=== PATIENT | male | born 1995 | race Caucasian/White ===

== ENCOUNTER 2017-07-06 18:18 | Emergency (ER) | payer MEDICAID ==
[~2017-07-06] VITALS: Ht 170.2 cm; Wt 71.5 kg
[~2017-07-06 18:18] MED LIST: CLOT30CR24 TOP
[2017-07-06 18:33] VITALS: Ht 170.2 cm; Wt 71.5 kg
[2017-07-06] MEDS ORDERED: AMOX500C2 PO (18:59)
--- NOTE | 2017-07-06 19:17 | ERA ---
ER Documentation Chief Complaint Date/Time DATE: 07/06/17 TIME: 19:13 Chief Complaint cough x 2 days, chest wall congestion, sore throat HPI Patient presents with a chief complaints of pharyngitis and body aches for the past week that has worsened over the past 2 days. Patient has not taken any medications for these symptoms. Denies any cough as stated in the nursing notes. Denies difficulty breathing, dysphagia, change in voice, drooling, oral swelling, ear pain or meningismus. Patient's vaccination status up-to-date. No recent travel. Nursing notes have been reviewed and are consistent with history given. ROS All systems reviewed and are negative except as per history of present illness. Medications Home Meds Active Scripts Amoxicillin* (Amoxicillin*) 500 Mg Cap, 500 MG PO TID for 10 Days, CAP Prov:DEBRA DELA CURZ PA-C 07/06/17 Clotrimazole* (Clotrimazole* AF) 1% - 30 Gm Cream.gm., 1 APPLIC TOP BID for 7 Days, TUB Prov:DEVAN HERRERA PA-C 11/26/15 Allergies Allergies: Coded Allergies: No Known Allergy (Unverified , 11/26/15) PMhx/Soc History of Surgery: No Anesthesia Reaction: No Hx Neurological Disorder: No Hx Respiratory Disorders: No Hx Cardiac Disorders: No Hx Psychiatric Problems: No Hx Miscellaneous Medical Probl: No Hx Alcohol Use: No Hx Substance Use: No Hx Tobacco Use: No Smoking Status: Never smoker Physical Exam Vitals Vital Signs Date Time Temp Pulse Resp B/P Pulse Ox O2 Delivery O2 Flow Rate FiO2 07/06/17 18:33 98.2 85 20 117/70 99 Physical Exam Const: Healthy-appearing, well-nourished, well-developed, no acute distress. Throat: Enlarged tonsils bilaterally with exudates. Erythematous oropharynx.. Moist mucous membranes. Neck: Nontender anterior cervical lymphadenopathy palpated bilaterally.. No posterior cervical lymphadenopathy, masses or goiter palpated. Trachea midline. Full range of motion. Supple. ~ No meningismus. Skin: No petechiae or rashes. No ulcer, induration, jaundice. Good turgor. Resp: No dyspnea, stridor, tripoding or drooling. Good air movement. Clear to auscultation bilaterally. Head: Normocephalic, Atraumatic. Eyes: Non-injected; No scleral erythema, discharge or foreign body. EOMI bilaterally. PERRLA. Ears: Normal External Ears, EACs clear, TM normal bilaterally without erythema. Nose: Normal nose without discharge, septal deviation, or sinus tenderness. Cardio: Regular rate and rhythm; No murmurs, gallops or rubs auscultated. No JVD grossly observed. Radial and posterior tibial pulses 2+ bilaterally. Capillary refill less than 2 seconds. Abd: Soft, non tender, non distended. No guarding, masses. Normal bowel sounds. No McBurney's point tenderness. MS: Normal motor strength, normal tone with gross examination. Back: No midline, flank or CVA tenderness. Ext: No cyanosis, edema or palpable cord. Normal movement of all extremities grossly observed. Neur: Awake, alert and oriented x3. Neurovascularly intact bilaterally. Psych: Normal Mood and Affect. Procedures/MDM Well-appearing 22-year-old male with no past medical history presents with a chief complaint of pharyngitis and general malaise/body aches as described in history and physical examination. I have little suspicion for influenza, meningitis, pneumonia, obstructive airway pathology or other serious bacterial infection at this time. Most likely diagnosis is tonsillitis versus pharyngitis. Centor criteria 3 out of 5. I have spoke with the patient regarding their condition and future management. They have verbally responded that they understand their status and treatment plan. The patients vitals are stable, and their current condition is appropriate for discharge. The patient will be given discharge instructions with return precautions. Discharge medications: Amoxicillin 500 mg p.o. twice daily 10 days. I recommended [id number] ibuprofen for discomfort Departure Diagnosis: Primary Impression: Cough Additional Impression: Pharyngitis Qualified Code: J02.9 - Pharyngitis, unspecified etiology Condition: Stable Patient Instructions: Pharyngitis, Strep (Presumed) Additional Instructions: Follow up with your PCP within the next 1-3 days for a more thorough evaluation and a possible referral to a specialist. Return the the emergency department immediately if symptoms worsen or change. If you have any questions regarding medications, ask your pharmacist or us before you leave. If any adverse reactions occur while taking your medications, discontinue the treatment and return to the emergency department immediately. Take your medications as directed, and complete the entire course of treatment. DEBRA DELA CRUZ PA-C Jul 06, 2017 19:17
== END 2017-07-06 19:10 | disposition home or self-care (01) ==
LOC: FTE 18:18
DX: J02.9 Acute pharyngitis, unspecified (principal)
CPT/HCPCS: 99283

== ENCOUNTER 2017-09-19 18:07 | Emergency (ER) | payer MEDICAID ==
[~2017-09-19] VITALS: Wt 75.0 kg
[~2017-09-19 18:07] MED LIST changes: +AMOX500C2 PO
--- NOTE | 2017-09-19 19:57 | ERD ---
ER Documentation Chief Complaint Chief Complaint fever,body aches x 4 days HPI 22-year-old male presents here to emergency department for complaints of fever and malaise for 4 days. Patient also has been having runny nose nasal congestion clear nasal discharge. Patient also has been having some dysuria, burning pain 4/10 scale, not better or worse with anything. Patient denies any penile discharge. Patient's daughter is sick with the same symptoms. ROS All systems reviewed and are negative except as per history of present illness. Medications Home Meds Active Scripts Amoxicillin* (Amoxicillin*) 500 Mg Cap, 500 MG PO TID for 10 Days, CAP Prov:DEBRA DELA CRUZ PA-C 07/06/17 Clotrimazole* (Clotrimazole* AF) 1% - 30 Gm Cream.gm., 1 APPLIC TOP BID for 7 Days, TUB Prov:DEVAN HERRERA PA-C 11/26/15 Allergies Allergies: Coded Allergies: No Known Allergy (Unverified , 11/26/15) PMhx/Soc Medical and Surgical Hx: pt denies Medical Hx, pt denies Surgical Hx History of Surgery: No Anesthesia Reaction: No Hx Neurological Disorder: No Hx Respiratory Disorders: No Hx Cardiac Disorders: No Hx Psychiatric Problems: No Hx Miscellaneous Medical Probl: No Hx Alcohol Use: No Hx Substance Use: No Hx Tobacco Use: No Smoking Status: Never smoker FmHx Family History: No coronary disease, No diabetes, No other Physical Exam Vitals Vital Signs Date Time Temp Pulse Resp B/P Pulse Ox O2 Delivery O2 Flow Rate FiO2 09/19/17 18:09 99.4 90 20 129/78 99 Physical Exam GENERAL: The patient is well developed and appropriate for usual state of health, in no apparent distress. CHEST: Clear to auscultation bilaterally. There are no rales, wheezes or rhonchi. HEART: Regular rate and rhythm. No murmurs, clicks, rubs or gallops. No S3 or S4. ABDOMEN: Soft, nontender and nondistended. Good bowel sounds. No rebound or guarding. No gross peritonitis. No gross organomegaly or masses. No Jimenez sign or McBurney point tenderness. BACK: No midline or flank tenderness. EXTREMITIES: Equal pulses bilaterally. There is no peripheral clubbing, cyanosis or edema. No focal swelling or erythema. Full range of motion. Grossly neurovascularly intact. NEURO: Alert and oriented. Cranial nerves 2-12 intact. Motor strength in all 4 extremities with 5/5 strength. Sensation grossly intact. Normal speech and gait. SKIN: There is no apparent rash or petechia. The skin is warm and dry. HEMATOLOGIC AND LYMPHATIC: There is no evidence of excessive bruising or lymphedema. No gross cervical, axillary, or inguinal lymphadenopathy. Results 24 hrs Laboratory Tests Test 09/19/17 20:10 Urine Color YELLOW Urine Clarity TURBID Urine pH 5.0 Urine Specific [place] 1.029 Urine Ketones NEGATIVEmg/dL Urine Nitrite NEGATIVEmg/dL Urine Bilirubin NEGATIVEmg/dL Urine Urobilinogen 2+mg/dL Urine Leukocyte Esterase NEGATIVELeu/ul Urine Microscopic RBC 12/HPF Urine Microscopic WBC 0/HPF Urine Mucus MANY/HPF Urine Hemoglobin 3+mg/dL Urine Glucose NEGATIVEmg/dL Urine Total Protein NEGATIVEmg/dl Procedures/MDM Medical Decision Making: Patient symptoms are most likely consistent with upper respiratory tract infection, which viral in origin. There is low suspicion for Pneumonia at this time since patients lungs sounds are clear, patient O2 saturation is normal and patient doesnt show any respiratory distress. Patients chest xray doesnt show infiltrates or any other cardiopulmonary emergencies at this time. There is low suspicion for other cardiopulmonary emergencies at this time such as CHF, Pulmonary Embolism, Pneumothorax, Aortic Aneurysm or any other cardiopulmonary emergencies at this time. There is low suspicion for sepsis. Patient appears well and is hemodynamically stable. Fever is controlled with medicines. Patient symptoms of dysuria and hematuria most likely can be from urinary tract infection, no leukocytosis noted, may be hemorrhagic cystitis, patient was advised to see urologist specialist for further evaluation. Patient was to be treated since he is symptomatic. Disposition: Home. Condition: Stable Prescriptions: Ciprofloxacin, ibuprofen Zyrtec Tylenol Instructions: Patient is advised to take medications as prescribed. Patient is advised to rest. Patient advised to increase fluid intake, do humidifier at home and if possible, do salt water gargles. Patient is advised that if symptoms are worse, shortness of breath, uncontrolled fever, stridor, vomiting, worst signs and symptoms to return to emergency department immediately. Otherwise, patient is advised to follow up with primary doctor in 5-7 days. See urology specialist for further evaluation of hematuria if symptoms of dysuria does not resolve. Disclaimer: Inadvertent spelling and grammatical errors are likely due to EHR/ dictation software use and do not reflect on the overall quality of patient care. Also, please note that the electronic time recorded on this note does not necessarily reflect the actual time of the patient encounter. Departure Diagnosis: Primary Impression: URI (upper respiratory infection) URI type: unspecified viral URI Qualified Code: J06.9 - Viral upper respiratory tract infection Additional Impression: Cystitis Condition: Stable Patient Instructions: Bladder Infection (Cystitis), Male (Child), Uri, Viral, No Abx (Adult) Additional Instructions: Patient is advised to take medications as prescribed. Patient is advised to rest. Patient advised to increase fluid intake, do humidifier at home and if possible, do salt water gargles. Patient is advised that if symptoms are worse, shortness of breath, uncontrolled fever, stridor, vomiting, worst signs and symptoms to return to emergency department immediately. Otherwise, patient is advised to follow up with primary doctor in 5-7 days. See urology specialist for further evaluation of hematuria if symptoms of dysuria does not resolve. CHARLINE VANCE NP Sep 19, 2017 19:57
[2017-09-19 22:14] LABS: ADD UMIC YES; UR ASCORBIC ACID NEGATIVE (NEGATIVE); UR BILIRUBIN (Dip) NEGATIVE (NEGATIVE); UR BLOOD (Dip) 3+ mg/dL (NEGATIVE); UR CLARITY TURBID (CLEAR); UR COLOR YELLOW (YELLOW); UR GLUCOSE (Dip) NEGATIVE (NEGATIVE); UR KETONES (Dip) NEGATIVE (NEGATIVE); UR LEUKOCYTE ESTERASE (Dip) NEGATIVE Leu/ul (NEGATIVE); UR MUCUS MANY /HPF (NONE SEEN); UR NITRITE (Dip) NEGATIVE (NEGATIVE); UR RBC 12 /HPF (0-5); UR SPECIFIC GRAVITY (Dip) 1.029 (1.003-1.030); UR TOTAL PROTEIN (Dip) NEGATIVE (NEGATIVE); UR UROBILINOGEN (Dip) 2+ mg/dL (NEGATIVE)
[2017-09-19] MEDS ORDERED: IBUP-1542 PO (22:59)
[2017-09-19] MEDS ORDERED: CETI10CA PO (22:59)
[2017-09-19] MEDS ORDERED: CIPR500T4 PO (22:59)
== END 2017-09-19 23:14 | disposition home or self-care (01) ==
LOC: FTE 18:07
DX: J06.9 Acute upper respiratory infection, unspecified (principal); N30.90 Cystitis, unspecified without hematuria
CPT/HCPCS: 81001; Z7502; 99283

== ENCOUNTER 2017-10-02 09:48 | Emergency (ER) | payer MEDICAID ==
[~2017-10-02] VITALS: Wt 78.0 kg
[~2017-10-02 09:48] MED LIST changes: +CETI10CA PO; +CIPR500T4 PO; +IBUP-1542 PO
[2017-10-02 10:55] LABS: URINE BLOOD (Dip) POC Trace-intact (NEGATIVE)
[2017-10-02] MEDS ORDERED: CIPR500T4 PO (11:12)
[2017-10-02] MEDS ORDERED: CLOT30CR24 TOP (11:12)
--- NOTE | 2017-10-02 11:17 | ERD ---
ER Documentation Chief Complaint Chief Complaint dysuria since yesterday HPI Patient is a 22-year-old male who presents with dysuria as well as irritation on the tip of his penis that began yesterday. He also admits to frequency. No fever. He states occasionally he sees some scant blood in his urine. No flank pain. No nausea or vomiting. No abdominal pain. No abnormal discharge from his penis. Denies any recent unprotected sex. States it is itchy. He has had these symptoms in the past before he was given cream which helped. ROS All systems reviewed and are negative except as per history of present illness. Medications Home Meds Active Scripts Clotrimazole* (Clotrimazole* AF) 1% - 30 Gm Cream.gm., 1 APPLIC TOP BID for 7 Days, TUB Prov:BRIDGER PURDY PA-C 10/02/17 Ciprofloxacin Hcl* (Ciprofloxacin Hcl*) 500 Mg Tablet, 500 MG PO BID for 3 Days , TAB Prov:BRIDGER PURDY PA-C 10/02/17 Ibuprofen* (Motrin*) 600 Mg Tab, 600 MG PO Q6H Y for PAIN AND OR ELEVATED TEMP, #30 TAB Prov:CHARLINE VANCE NP 09/19/17 Cetirizine Hcl* (Zyrtec*) 10 Mg Capsule, 10 MG PO DAILY, #30 TAB.CHEW Prov:CHARLINE VANCE NP 09/19/17 Ciprofloxacin Hcl* (Ciprofloxacin Hcl*) 500 Mg Tablet, 500 MG PO BID for 10 Days , TAB Prov:CHARLINE VANCE NP 09/19/17 Amoxicillin* (Amoxicillin*) 500 Mg Cap, 500 MG PO TID for 10 Days, CAP Prov:DEBRA DELA CRUZ PA-C 07/06/17 Clotrimazole* (Clotrimazole* AF) 1% - 30 Gm Cream.gm., 1 APPLIC TOP BID for 7 Days, TUB Prov:DEVAN HERRERA PA-C 11/26/15 Allergies Allergies: Coded Allergies: No Known Allergy (Unverified , 11/26/15) PMhx/Soc Medical and Surgical Hx: pt denies Medical Hx, pt denies Surgical Hx History of Surgery: No Anesthesia Reaction: No Hx Neurological Disorder: No Hx Respiratory Disorders: No Hx Cardiac Disorders: No Hx Psychiatric Problems: No Hx Miscellaneous Medical Probl: No Hx Alcohol Use: Yes (occ) Hx Substance Use: No Hx Tobacco Use: No Smoking Status: Never smoker FmHx Family History: No diabetes Physical Exam Vitals Vital Signs Date Time Temp Pulse Resp B/P Pulse Ox O2 Delivery O2 Flow Rate FiO2 10/02/17 09:51 98.1 89 18 134/67 99 Physical Exam Const: [] Head: Atraumatic Eyes: Normal Conjunctiva ENT: Normal External Ears, Nose and Mouth. Neck: Full range of motion..~ No meningismus. Resp: Clear to auscultation bilaterally Cardio: Regular rate and rhythm, no murmurs Abd: Soft, non tender, non distended. Normal bowel sounds : Mild erythema at glans of penis, no dischrge, no other rashes or lesions Results 24 hrs Laboratory Tests Test 10/02/17 10:56 Bedside Urine pH (LAB) 6.0 Bedside Urine Protein (LAB) Negative Bedside Urine Glucose (UA) Negative Bedside Urine Ketones (LAB) Negative Bedside Urine Blood Trace-intact Bedside Urine Nitrite (LAB) Negative Bedside Urine Leukocyte Esterase (L Negative Procedures/MDM 22-year-old male presents with balanitis. He also has dysuria and increased urinary frequency. He is treated with clotrimazole as well as Cipro. He denies any recent unprotected sex or possibility of STD. Departure Diagnosis: Primary Impression: Dysuria Additional Impression: Balanitis Condition: Stable Patient Instructions: Dysuria, Balanitis Additional Instructions: Llame al doctor KALPANA y royal isaura LILLIAN PARA DENTRO DE 1-2 DOMÍNGUEZ.Dgale a la secretaria que nosotros le instruimos hacer esta lillian.Avise o llame si bolton condicin se empeora antes de la lillian. Regresa aqui si peor o no mejor. BRIDGER PURDY PA-C Oct 02, 2017 11:17
== END 2017-10-02 11:17 | disposition home or self-care (01) ==
LOC: FTE 09:48
DX: N48.1 Balanitis (principal)
CPT/HCPCS: 81003; Z7502; 99283

== ENCOUNTER 2019-05-08 10:02 | Emergency (ER) | payer MEDICAID ==
[~2019-05-08] VITALS: Ht 157.5 cm; Wt 75.0 kg
[~2019-05-08 10:02] MED LIST changes: +CYCL10TA7 PO; +IBUP800T48 PO
[2019-05-08 10:03] VITALS: BP 142/92; PULSE 83; RESP 18; Ht 157.5 cm; Wt 75.0 kg
[2019-05-08] MEDS ORDERED: IBUPROFEN 800 MG TAB PO ONE (11:00)
--- NOTE | 2019-05-08 12:46 | ERD ---
ER Documentation Chief Complaint Chief Complaint BACK PAIN RAD RIGHT LEG WHILE BEND OVER HPI 24-year-old male presents to ED complaining of back pain x2 days. He states that the pain is worse today. He rates the pain as 8 out of 10 intensity and states it radiates down his right leg. He states that he lifts heavy things frequently at work and that he also has a bad mattress. He denies a history of previous events that is similar to this. He states that the pain is worse with movement and bending down. He has not taken anything for the pain. He denies any other medical history. He denies any fevers, chills, saddle anesthesia, loss of bowel or bladder function. Patient also complains of burning sensation when he urinates. He reports a history of UTI about a year ago and this and similar. He states that he is only had one sexual partner in the past 1 month and he states he uses protection and has no concerns for any STIs. ROS All systems reviewed and are negative except as per history of present illness. Medications Home Meds Active Scripts Ciprofloxacin Hcl* (Ciprofloxacin Hcl*) 500 Mg Tablet, 500 MG PO BID for 7 Days, TAB Prov:SANDOVAL DE GUZMAN PA-C 05/08/19 Cyclobenzaprine Hcl* (Cyclobenzaprine Hcl*) 10 Mg Tablet, 10 MG PO TID, #25 TAB Prov:SANDOVAL DE GUZMAN PA-C 05/08/19 Ibuprofen* (Motrin*) 800 Mg Tab, 800 MG PO Q6H PRN for PAIN AND OR ELEVATED TEMP, #30 TAB Prov:SANDOVAL DE GUZMAN PA-C 05/08/19 Clotrimazole* (Clotrimazole* AF) 1% - 30 Gm Cream.gm., 1 APPLIC TOP BID for 7 Days, TUB Prov:BRIDGER PURDY PA-C 10/02/17 Ciprofloxacin Hcl* (Ciprofloxacin Hcl*) 500 Mg Tablet, 500 MG PO BID for 3 Days, TAB Prov:BRIDGER PURDY PA-C 10/02/17 Ibuprofen* (Motrin*) 600 Mg Tab, 600 MG PO Q6H PRN for PAIN AND OR ELEVATED TEMP, #30 TAB Prov:CHARLINE VANCE NP 09/19/17 Cetirizine Hcl* (Zyrtec*) 10 Mg Capsule, 10 MG PO DAILY, #30 TAB.CHEW Prov:CHARLINE VANCE NP 09/19/17 Ciprofloxacin Hcl* (Ciprofloxacin Hcl*) 500 Mg Tablet, 500 MG PO BID for 10 Days, TAB Prov:CHARLINE VANCE [facility] 09/19/17 Amoxicillin* (Amoxicillin*) 500 Mg Cap, 500 MG PO TID for 10 Days, CAP Prov:DEBRA DELA CRUZ PA-C 07/06/17 Clotrimazole* (Clotrimazole* AF) 1% - 30 Gm Cream.gm., 1 APPLIC TOP BID for 7 Days, TUB Prov:DEVAN HERRERA PA-C 11/26/15 Allergies Allergies: Coded Allergies: No Known Allergy (Unverified , 11/26/15) PMhx/Soc Medical and Surgical Hx: pt denies Medical Hx, pt denies Surgical Hx History of Surgery: No Anesthesia Reaction: No Hx Neurological Disorder: No Hx Respiratory Disorders: No Hx Cardiac Disorders: No Hx Psychiatric Problems: No Hx Miscellaneous Medical Probl: No Hx Alcohol Use: Yes (occ) Hx Substance Use: No Hx Tobacco Use: No Smoking Status: Current some day smoker FmHx Family History: No diabetes Physical Exam Vitals Vital Signs Date Temp Pulse Resp B/P (MAP) Pulse Ox O2 O2 Flow FiO2 Time Delivery Rate 05/08/19 98.1 83 18 142/92 99 10:03 (109) Physical Exam Const: No acute distress Head: Atraumatic Neck: Full range of motion, NTTP Resp: Clear to auscultation bilaterally Cardio: Regular rate and rhythm, Abd: Soft, non tender, non distended. Back: Moderate Tenderness to the Left lower back : Uncircumsized, no D/C, no pain, no lad, testicles nontender Ext: No cyanosis, or edema Neur: Awake and alert Psych: Normal Mood and Affect Results 24 hrs Laboratory Tests Test 05/08/19 10:49 Urine Color YELLOW Urine Clarity CLEAR Urine pH 6.0 Urine Specific [place] 1.028 Urine Ketones NEGATIVE mg/dL Urine Nitrite NEGATIVE mg/dL Urine Bilirubin NEGATIVE mg/dL Urine Urobilinogen NEGATIVE mg/dL Urine Leukocyte Esterase NEGATIVE [place]/ul Urine Microscopic RBC 7 /HPF Urine Microscopic WBC 2 /HPF Urine Mucus MODERATE /HPF Urine Hemoglobin 1+ mg/dL Urine Glucose NEGATIVE mg/dL Urine Total Protein NEGATIVE mg/dl Current Medications Medications Dose Sig/Vy Start Time Status Last (Trade) Ordered Route PRN Stop Time Admin Dose Reason Admin Ibuprofen 800 mg ONCE ONCE 05/08/19 DC 05/08/19 (Motrin) PO 11:00 05/08/19 10:47 11:01 Procedures/MDM ED COURSE: The patient was stable throughout ED course. I kept the patient informed of l aboratory and diagnostic imaging results throughout the ED course. MEDICATIONS GIVEN: Motrin Patient tolerated medication well with no adverse reactions. Patient reported improvement in pain. MEDICAL DECISION MAKING: Patient is a 24-year-old male complaining of back pain x2 days. I have low suspicion for AAA, CAUDA EQUINA SYNDROME, CORD COMPRESSION, INFILTRATIVE, INFECTIOUS ETIOLOGY, EPIDURAL ABSCESS, FRACTURE. Patient was tender on his low back on physical exam. Rest of physical exam was unremarkable. He also reports pain with urination with a history of UTI. Urinalysis was done which showed no leukocyte Estrace or nitrites. However patient was symptomatic and was treated with ciprofloxacin on outpatient basis. Vital signs were reviewed. Patient is afebrile. Patient was not hypoxic. Patient was hemodynamically stable. Patient was told to follow up with primary care for further care and management. PRESCRIPTION: DISCHARGE: At this time, patient is stable for discharge and outpatient management. I have instructed the patient to follow-up with their primary care physician in 1-2 days. I have discussed with the patient the possibility of needing to see a specialist for further workup and imaging studies if symptoms persist. I have instructed the patient to promptly return to the ER for any new or worsening symptoms including increased pain, fever, nausea, vomiting, weakness or LOC. The patient expressed understanding of and agreement with this plan. All questions were answered. Home care instructions were provided. Disclaimer: Inadvertent spelling and grammatical errors are likely due to EHR/dictation software use and do not reflect on the overall quality of patient care. Also, please note that the electronic time recorded on this note does not necessarily reflect the actual time of the patient encounter. Departure Diagnosis: Primary Impression: Sciatica of right side Additional Impression: Dysuria Condition: Fair Patient Instructions: Dysuria, Back Pain W/ Sciatica Referrals: COMMUNITY CLINICS YOU HAVE RECEIVED A MEDICAL SCREENING EXAM AND THE RESULTS INDICATE THAT YOU DO NOT HAVE A CONDITION THAT REQUIRES URGENT TREATMENT IN THE EMERGENCY DEPARTMENT. FURTHER EVALUATION AND TREATMENT OF YOUR CONDITION CAN WAIT UNTIL YOU ARE SEEN IN YOUR DOCTORS OFFICE WITHIN THE NEXT 1-2 DAYS. IT IS YOUR RESPONSIBILITY TO MAKE AN APPOINTMENT FOR FOLOW-UP CARE. IF YOU HAVE A PRIMARY DOCTOR --you should call your primary doctor and schedule an appointment IF YOU DO NOT HAVE A PRIMARY DOCTOR YOU CAN CALL OUR PHYSICIAN REFERRAL HOTLINE AT IF YOU CAN NOT AFFORD TO SEE A PHYSICIAN YOU CAN CHOSE FROM THE FOLLOWING [facility] [address] [facility] [address] [facility] [address] [facility] [address] [facility] [address] [facility]. [facility] [address] [facility] [facility] YOU HAVE RECEIVED A MEDICAL SCREENING EXAM AND THE RESULTS INDICATE THAT YOU DO NOT HAVE A CONDITION THAT REQUIRES URGENT TREATMENT IN THE EMERGENCY DEPARTMENT. FURTHER EVALUATION AND TREATMENT OF YOUR CONDITION CAN WAIT UNTIL YOU ARE SEEN IN YOUR DOCTORS OFFICE WITHIN THE NEXT 1-2 DAYS. IT IS YOUR RESPONSIBILITY TO MAKE AN APPOINTMENT FOR FOLOW-UP CARE. IF YOU HAVE A PRIMARY DOCTOR --you should call your primary doctor and schedule and appointment IF YOU DO NOT HAVE A PRIMARY DOCTOR YOU CAN CALL OUR PHYSICIAN REFERRAL HOTLINE AT . IF YOU CAN NOT AFFORD TO SEE A PHYSICIAN YOU CAN CHOSE FROM THE FOLLOWING [facility] INSTITUTIONS: [facility] [address] [place] [address] [facility] [address] [place] [address] [facility] [address] [place] [address] [facility] 7 a.m.- 11 p.m. Every Day of the Week NO APPOINTMENT OR AUTHORIZATION NEEDED [facility] Hours: Mon-Fri 9:00 AM - 5:00 PM Additional Instructions: Call your primary care doctor TOMORROW for an appointment during the next 1-2 days.See the doctor sooner or return here if your condition worsens before your appointment time. SANDOVAL DE GUZMAN PA-C May 08, 2019 12:46
== END 2019-05-08 12:53 | disposition home or self-care (01) ==
LOC: FTE 10:02
DX: M54.41 Lumbago with sciatica, right side (principal); F17.210 Nicotine dependence, cigarettes, uncomplicated; R30.0 Dysuria
CPT/HCPCS: 81001; 87086; Z7610; 99283